=== PATIENT | male | born 1960 | race Caucasian/White ===

== ENCOUNTER 2017-07-02 19:13 | Emergency (ER) | payer OTHER ==
[~2017-07-02] VITALS: Ht 180.3 cm; Wt 74.0 kg
[~2017-07-02 19:13] MED LIST: BUPR150XL PO; CYMB30CA PO; DICL50TA2 PO; DIOV320T PO; GLUCTAB PO; HYDR-2768 PO; IMIT50TA PO; LEVEMIR SC; NEUR600T PO
[2017-07-02 19:30] VITALS: BP 155/80; PULSE 94; RESP 18; TEMP 98.4; O2SAT 99
[2017-07-02] MEDS ORDERED: TETANUS/DIPHTHERIA TOXOID ADULT 0.5 ML VIAL IM ONE (20:30)
[2017-07-02] MEDS ORDERED: SULFAMETHOXAZOLE-TRIMETHOPRIM DS 800-160 MG TAB PO ONE (20:30)
[2017-07-02] MEDS ORDERED: BACT800T5 PO (20:36)
[2017-07-02] MEDS ORDERED: DICL75TA PO (20:37)
--- NOTE | 2017-07-02 20:42 | PD ---
HPI Chief Complaint: Bite or Sting Time Seen by Provider: 20:13 Travel History International Travel<30 days: No Contact w/Intl Traveler<30days: No Traveled to known affect area: No History of Present Illness HPI 57-year-old male that presents to the ED for evaluation of possible bite to his left middle finger. Per patient this happened about a week ago. Per patient he had 2 puncture wounds. He wasn't sure what bit him. He was seen on 26 April in [facility] and had an x-ray and off for pain medication. Per patient he was doing okay except that his been having some redness and difficulty flexing the finger. Denies any numbness, tilling, weakness. No fevers chills or sweats. He is a diabetic. He has not gotten a tetanus booster in some time. He has no allergies to medication. No other medical issues. Pain per patient is 6 out of 10 and gets worse with bending of the digit. Puncture wounds are to the medial aspect of the left third digit. PFSH Past Medical History Depression: Yes High Cholesterol: Yes Cerebrovascular Accident: No Diabetes: Yes Patient Takes Glucophage: No Diminished Hearing: No Gastrointestinal Disorders: No Headaches: Yes Hypertension: Yes Immunizations Current: Yes Myocardial Infarction: No Renal Failure: No ?: Not Past Surgical History Abdominal Surgery: Yes (hernia repair) Social History Alcohol Use: No Tobacco Use: No Substance Use: No Allergies-Medications (Allergen,Severity, Reaction): Coded Allergies: No Known Allergies (Verified , 09/05/14) Reported Meds & Prescriptions Reported Meds & Active Scripts Active Diclofenac Sodium DR (Diclofenac Sodium) 75 Mg Tabdr 75 Mg PO BID PRN Bactrim DS (Sulfamethoxazole-Trimethoprim) 800-160 Mg Tab 1 Tab PO BID 10 Days Diclofenac Potassium 50 Mg Tab 1 Tab PO Q8 PRN Reported Imitrex (Sumatriptan Succinate) 50 Mg Tab 50 Mg PO BIDPRN Cymbalta (Duloxetine HCl) 30 Mg Cap 30 Mg PO DAILY Gabapentin 600 Mg Tab 600 Mg PO DAILY Wellbutrin 150 Mg Tab Xl (Bupropion Hcl) 150 Mg Rusty 150 Mg PO DAILY Diovan (Valsartan) 320 Mg Tab 320 Mg PO DAILY Hctz (Hydrochlorothiazide) 25 Mg Tab 25 Mg PO DAILY Levemir (Insulin Detemir) Inj 20 SC HS Glucophage XR 24 HR (Metformin HCl) 500 Mg Tab 500 Mg PO BIDPC Review of Systems Except as stated in HPI: all other systems reviewed are Neg Physical Exam Narrative GENERAL: SKIN: Warm and dry. HEAD: Atraumatic. Normocephalic. EYES: Pupils equal and round. No scleral icterus. No injection or drainage. ENT: No nasal bleeding or discharge. Mucous membranes pink and moist. Tongue is midline. No uvula deviation. NECK: Trachea midline. No JVD. CARDIOVASCULAR: Regular rate and rhythm. RESPIRATORY: No accessory muscle use. Clear to auscultation. Breath sounds equal bilaterally. GASTROINTESTINAL: Abdomen soft, non-tender, nondistended. Hepatic and splenic margins not palpable. MUSCULOSKELETAL: Extremities without clubbing, cyanosis, or edema. No obvious deformities. Full range of motion of the upper and lower extremities bilaterally. Patient has difficulty flexing the left third digit but able to do it. Patient does have 2 puncture wounds that appear to have erythema on the lateral aspect of the third digit around the MIP area. Some purulence noted on the most palmar puncture wound. Minimal however. No obvious tendon injury deformity or injury. No foreign body noted. NEUROLOGICAL: Awake and alert. No obvious cranial nerve deficits. Motor grossly within normal limits. Five out of 5 muscle strength in the arms and legs. Normal speech. PSYCHIATRIC: Appropriate mood and affect; insight and judgment normal. Data Data Last Documented VS Vital Signs Date Time Temp Pulse Resp B/P (MAP) Pulse Ox O2 Delivery O2 Flow Rate FiO2 07/02/17 19:30 98.4 94 18 155/80 (105) 99 Orders Orders Sulfamet-Trimeth Ds 800-160 Mg (Bactrim (07/02/17 20:30) Tetanus/Diphtheria Tox Adult (Tetanus/Di (07/02/17 20:30) Ed Discharge Order (07/02/17 20:36) MDM Medical Decision Making Medical Screen Exam Complete: Yes Emergency Medical Condition: Yes Medical Record Reviewed: Yes Differential Diagnosis Cellulitis versus wound infection versus puncture wound Narrative Course 57-year-old male that presents to the ED for evaluation of pain and swelling to the left middle finger. Patient was properly examined and was found to have signs and symptoms very consistent what appears to be infected wound to the left middle finger. This time patient will be started on antibiotics. Patient able to move the finger do not suspect tenosynovitis at this time. Patient had an x-ray another facility that was negative for foreign body. Patient will be given tetanus booster. Given prescription for Keflex and for pain. Told to follow up closely with PCP. See ED worsening symptoms. Diagnosis Primary Impression: Infected wound Patient Instructions: General Instructions Additional Instructions: Take medications as prescribed. Ice or warm compresses. Close follow-up in 48 hours in no improvement at all. See ED worsening symptoms. Follow with PCP. Med/Other Pt SpecificInfo: Prescription(s) given Scripts Diclofenac Sodium DR (Diclofenac Sodium DR) 75 Mg Tabdr 75 MG PO BID Y for PAIN SCALE 1 TO 10, #20 TAB 0 Refills Prov: Serjio Washington MD 07/02/17 Sulfamethoxazole-Trimethoprim (Bactrim DS) 800-160 Mg Tab 1 TAB PO BID for Infection for 10 Days, #20 TAB 0 Refills Prov: Serjio Washington MD 07/02/17 Disposition: 01 DISCHARGE HOME Condition: Stable Pa Saul Jul 02, 2017 20:42
== END 2017-07-02 20:50 | disposition home or self-care (01) ==
LOC: PHED 19:13 → PHEFT 20:50
DX: L08.89 Other specified local infections of the skin and subcutaneous tissue (principal); Z23 Encounter for immunization
CPT/HCPCS: 90471; 90714